=== PATIENT | female | born 1970 | race Caucasian/White ===

== ENCOUNTER 2021-03-19 11:26 | Inpatient (IN) | payer OTHER ==
[~2021-03-19] VITALS: Ht 162.6 cm; Wt 59.0 kg
[2021-03-19 12:30] LABS: HEMOGLOBIN 13.1 gm/dl (12.3-15.3); RED BLOOD COUNT 4.3 M/UL (4.00-5.10); WHITE BLOOD COUNT 14.3 K/UL (4.5-11.0)
[2021-03-19 12:59] LABS: BUN/CREATININE RATIO 20 (0-10)
[2021-03-20 04:10] LABS: HEMOGLOBIN 12.5 gm/dl (12.3-15.3); RED BLOOD COUNT 4.17 M/UL (4.00-5.10); WHITE BLOOD COUNT 12.4 K/UL (4.5-11.0)
[2021-03-20 04:40] LABS: BUN/CREATININE RATIO 15 (0-10)
--- NOTE | 2021-03-20 08:17 | NUR ---
NED AND MCKENZIE NOTIFIED OF PT SCREAMING IN PAIN NPO ORDER CONFIRMED FOR POSSIBLE WASHOUT OF FINGER TODAY SEE EMAR FOR ORDERS WCTM
[2021-03-21 00:51] LABS: ACINETOBACTER BAUMANNII Not Detected (Negative); CANDIDA ALBICANS Not Detected (Negative); CANDIDA KRUSEI Not Detected (Negative); CANDIDA TROPICALIS Not Detected (Negative); ENTEROCOCCUS Not Detected (Negative); ESCHERICHIA COLI Not Detected (Negative); HAEMOPHILUS INFLUENZAE Not Detected (Negative); KLEBSIELLA OXYTOCA Not Detected (Negative); KLEBSIELLA PNEUMONIAE Not Detected (Negative); KPC-CARBAPENEM-RESISTANCE GENE Not Detected (Negative); PROTEUS Not Detected (Negative); PSEUDOMONAS AERUGINOSA Not Detected (Negative); SERRATIA MARCESANS Not Detected (Negative); STAPHYLOCOCCUS AUREUS Not Detected (Negative); STREP AGALACTIAE (GROUP B) Not Detected (Negative); STREP PYOGENES (GROUP A) Not Detected (Negative); STREPTOCOCCUS Not Detected (Negative); mecA (METHICILLIN RESIST GENE Not Detected (Negative); vanA/B (VANCOMYCIN RESIST GENE Not Detected (Negative)
[2021-03-21 02:31] LABS: STAPHYLOCOCCUS DETECTED (Negative)
[2021-03-21 05:07] LABS: HEMOGLOBIN 13.3 gm/dl (12.3-15.3); RED BLOOD COUNT 4.4 M/UL (4.00-5.10)
[2021-03-21 05:46] LABS: BUN/CREATININE RATIO 20 (0-10)
--- NOTE | 2021-03-21 16:29 | NUR ---
PT STATED SHE WANTED TO LEAVE AMA. NURSE INSTRUCTED PT OF DANGERS OF LEAVING AMA. PHYSICIAN WAS NOTIFIED AND EDUCATED PT FURTHER ON THE DANGERS OF LEAVING AMA. PT STATED SHE UNDERSTANDS THE DANGERS OF LEAVING AMA AND HAS CHOSEN TO STILL LEAVE. PT SIGNED AMA PAPERS.
== END 2021-03-21 16:25 | disposition left against medical advice (07) | DRG 603 ==
LOC: ER1 11:26 → M/S 15:12 → CDU 15:12 → M/S 18:01
PROVIDERS: Orthopaedic Surgery; Physician Assistant; ADMIT Internal Medicine
PROC: 0J9J0ZZ Drainage of Right Hand Subcutaneous Tissue and Fascia, Open Approach (ICD-10-PCS; principal; 2021-03-20 16:47)
DX: L03.113 Cellulitis of right upper limb (principal); L02.511 Cutaneous abscess of right hand; E87.1 Hypo-osmolality and hyponatremia; Z20.822 Contact with and (suspected) exposure to COVID-19; F19.10 Other psychoactive substance abuse, uncomplicated; F11.10 Opioid abuse, uncomplicated; E87.6 Hypokalemia; F15.10 Other stimulant abuse, uncomplicated; Z56.0 Unemployment, unspecified
CPT/HCPCS: 36415; 73130; 80048; 80053; 80202; 80307; 81001; 83605; 83735; 84703; 85025; 85652; 86140; 87040; 87070; 87077; 87086; 87150; 87186; 87205; 96374; 96375; 96376; 99284; J1100; J2001; J2060; J2270; J2405; J2543; J2704; J3010; J3370; J7030; J7050; J7120; U0002

== ENCOUNTER 2021-10-25 21:44 | Inpatient (IN) | payer OTHER ==
[~2021-10-25] VITALS: Ht 160 cm; Wt 63.5 kg
[2021-10-25 22:44] LABS: HEMOGLOBIN 12.4 gm/dl (12.3-15.3); RED BLOOD COUNT 4.34 M/UL (4.00-5.10); WHITE BLOOD COUNT 14.7 K/UL (4.5-11.0)
[2021-10-25 23:04] LABS: BUN/CREATININE RATIO 30 (0-10)
[2021-10-26 14:34] LABS: MONONUCLEAR CELLS 86.6 (75-100); POLYMORPHONUCLEAR % 13.4 (0-25); RBC (AUTOMATED) 8600 (0-100000); WBC (AUTOMATED) 900 (0-500)
[2021-10-26 14:44] LABS: LDH, BODY FLUID 78 U/L
[2021-10-26 14:45] LABS: AMYLASE, BODY FLUID 21 U/L
[2021-10-27 03:00] LABS: HEMOGLOBIN 12.8 gm/dl (12.3-15.3); RED BLOOD COUNT 4.43 M/UL (4.00-5.10); WHITE BLOOD COUNT 9.7 K/UL (4.5-11.0)
[2021-10-27 03:21] LABS: BUN/CREATININE RATIO 30 (0-10)
[2021-10-27 09:10] LABS: HBSAG SCREEN Negative (Negative); HCV AB <0.1 (0.0-0.9); HEP A AB, IGM Negative (Negative); HEP B CORE AB, IGM Negative (Negative)
[2021-10-28 04:07] LABS: HEMOGLOBIN 13.5 gm/dl (12.3-15.3); RED BLOOD COUNT 4.72 M/UL (4.00-5.10)
[2021-10-28 04:27] LABS: BUN/CREATININE RATIO 24 (0-10)
[2021-10-29 03:09] LABS: BUN/CREATININE RATIO 33 (0-10)
[2021-10-29 03:20] LABS: HEMOGLOBIN 12.1 gm/dl (12.3-15.3); WHITE BLOOD COUNT 8.4 K/UL (4.5-11.0)
[2021-10-29 03:22] LABS: RED BLOOD COUNT 4.23 M/UL (4.00-5.10)
--- NOTE | 2021-10-29 17:16 | NUR ---
PATIENT IS NONCOMPLIANT WITH STRICT I/O PATIENT WILL NOT USE HAT IN COMMODE WHEN VOIDING. PT EDUCATED ABOUT IMPORTANCE OF STRICT I/O, PT VERBALIZED UNDERSTANDING. PATIENT ALSO AMBULATES OFF UNIT SEVERAL TIMES PER DAY, AND USES RESTROOM DOWN STAIRS AT TIMES.
[2021-10-30 05:10] LABS: BUN/CREATININE RATIO 36 (0-10)
[2021-10-30 07:11] LABS: HIV AB/P24 AG SCREEN Non Reactive (Non Reactive)
[2021-10-31 03:03] LABS: HEMOGLOBIN 13.1 gm/dl (12.3-15.3); RED BLOOD COUNT 4.57 M/UL (4.00-5.10); WHITE BLOOD COUNT 8.8 K/UL (4.5-11.0)
[2021-10-31 03:28] LABS: BUN/CREATININE RATIO 34 (0-10)
[2021-11-02 03:12] LABS: HEMOGLOBIN 11.8 gm/dl (12.3-15.3); RED BLOOD COUNT 4.17 M/UL (4.00-5.10); WHITE BLOOD COUNT 8.5 K/UL (4.5-11.0)
[2021-11-02 03:33] LABS: BUN/CREATININE RATIO 31 (0-10)
[2021-11-03 07:52] LABS: BUN/CREATININE RATIO 58 (0-10)
[2021-11-04 06:45] LABS: HEMOGLOBIN 12.6 gm/dl (12.3-15.3); RED BLOOD COUNT 4.5 M/UL (4.00-5.10); WHITE BLOOD COUNT 9.5 K/UL (4.5-11.0)
[2021-11-04 07:03] LABS: BUN/CREATININE RATIO 52 (0-10)
[2021-11-04] MEDS ORDERED: COZAAR 25MG TAB25 MG PO (12:00)
[2021-11-04] MEDS ORDERED: HYDROCODON-ACE1 EAC2 PO (12:00)
[2021-11-04] MEDS ORDERED: ALPRAZOLAM0.5 MG PO (12:00)
[2021-11-04] MEDS ORDERED: FUROSEMIDE40 MG PO (12:00)
[2021-11-04] MEDS ORDERED: ALDACTONE 25MG25 MG PO (12:00)
[2021-11-04] MEDS ORDERED: DIGOXIN125 MCG PO (12:00)
[2021-11-04] MEDS ORDERED: METOPROLOL SUC100 MG PO (12:00)
[2021-11-04] MEDS ORDERED: VANCOMYCIN1.25 GM/12 IV (12:00)
[2021-11-04] MEDS ORDERED: CEFEPIME HCL1 GM INJ (12:00)
== END 2021-11-04 12:37 | disposition left against medical advice (07) | DRG 286 ==
LOC: ER1 21:44 → CDU 10-26 02:37 → M/S 10-26 02:37
PROVIDERS: Internal Medicine; Internal Medicine Cardiovascular Disease; Internal Medicine Infectious Disease; Physician Assistant; ADMIT Internal Medicine
PROC: 0W993ZZ Drainage of Right Pleural Cavity, Percutaneous Approach (ICD-10-PCS; principal; 2021-10-26)
PROC: B24BZZZ Ultrasonography of Heart with Aorta (ICD-10-PCS; 2021-10-26)
PROC: B24BZZ4 Ultrasonography of Heart with Aorta, Transesophageal (ICD-10-PCS; 2021-10-30)
PROC: 4A023N7 Measurement of Cardiac Sampling and Pressure, Left Heart, Percutaneous Approach (ICD-10-PCS; 2021-11-01)
PROC: B2111ZZ Fluoroscopy of Multiple Coronary Arteries using Low Osmolar Contrast (ICD-10-PCS; 2021-11-01)
DX: I33.0 Acute and subacute infective endocarditis (principal); I50.23 Acute on chronic systolic (congestive) heart failure; J18.9 Pneumonia, unspecified organism; I42.8 Other cardiomyopathies; I51.7 Cardiomegaly; F17.200 Nicotine dependence, unspecified, uncomplicated; Z20.822 Contact with and (suspected) exposure to COVID-19; T43.625A Adverse effect of amphetamines, initial encounter; I27.20 Pulmonary hypertension, unspecified; F15.10 Other stimulant abuse, uncomplicated; K80.20 Calculus of gallbladder without cholecystitis without obstruction; E88.09 Other disorders of plasma-protein metabolism, not elsewhere classified; M65.18 Other infective (teno)synovitis, other site; R74.01 Elevation of levels of liver transaminase levels; F17.210 Nicotine dependence, cigarettes, uncomplicated; F41.9 Anxiety disorder, unspecified; Z98.890 Other specified postprocedural states; Z82.49 Family history of ischemic heart disease and other diseases of the circulatory system
CPT/HCPCS: ECHO; 36415; 71045; 71046; 73701; 80048; 80053; 80074; 80076; 80202; 80307; 81001; 82150; 82550; 82553; 82945; 83605; 83615; 83690; 83880; 83986; 84157; 84484; 84703; 85025; 85379; 85610; 85652; 86140; 87040; 87070; 87081; 87205; 87389; 89051; 93005; 93306; 93312; 93320; 94640; 94664; 94760; 96365; 96366; 96375; 99152; 99285; C1769; C1887; C1894; J0456; J0692; J0696; J1160; J1644; J1650; J1885; J1940; J2250; J2310; J3010; J3370; J7040; J7070; Q0177; Q9967

== ENCOUNTER 2021-12-17 23:19 | Inpatient (IN) | payer OTHER ==
[~2021-12-17] VITALS: Ht 162.6 cm; Wt 61.2 kg
[~2021-12-17 23:19] MED LIST: ALDACTONE 25MG25 MG PO; ALPRAZOLAM0.5 MG PO; CEFEPIME HCL1 GM INJ; COZAAR 25MG TAB25 MG PO; DIGOXIN125 MCG PO; FUROSEMIDE40 MG PO; HYDROCODON-ACE1 EAC2 PO; METOPROLOL SUC100 MG PO; VANCOMYCIN1.25 GM/12 IV
[2021-12-17 23:45] LABS: HEMOGLOBIN 12.8 gm/dl (12.3-15.3); RED BLOOD COUNT 4.53 M/UL (4.00-5.10); WHITE BLOOD COUNT 11.8 K/UL (4.5-11.0)
[2021-12-18 00:22] LABS: BUN/CREATININE RATIO 42 (0-10)
[2021-12-18] MEDS ORDERED: FUROSEMIDE40 MG PO (09:44)
[2021-12-18] MEDS ORDERED: LOSARTAN POTASS25 MG PO (09:44)
[2021-12-18] MEDS ORDERED: DIGOXIN125 MCG PO (09:44)
[2021-12-18] MEDS ORDERED: METOPROLOL SUC100 MG PO (09:45)
[2021-12-18] MEDS ORDERED: SPIRONOLACTONE25 MG PO (09:46)
[2021-12-19 06:22] LABS: HEMOGLOBIN 13.7 gm/dl (12.3-15.3); RED BLOOD COUNT 4.91 M/UL (4.00-5.10)
[2021-12-19 06:35] LABS: WHITE BLOOD COUNT 8.3 K/UL (4.5-11.0)
[2021-12-19 06:52] LABS: BUN/CREATININE RATIO 44 (0-10)
[2021-12-20 06:15] LABS: HEMOGLOBIN 14.5 gm/dl (12.3-15.3); RED BLOOD COUNT 5.13 M/UL (4.00-5.10); WHITE BLOOD COUNT 7.5 K/UL (4.5-11.0)
[2021-12-20 06:56] LABS: BUN/CREATININE RATIO 48 (0-10)
[2021-12-21 05:54] LABS: BUN/CREATININE RATIO 37 (0-10)
[2021-12-22 06:35] LABS: BUN/CREATININE RATIO 32 (0-10)
[2021-12-23 04:51] LABS: BUN/CREATININE RATIO 33 (0-10)
[2021-12-24 11:31] LABS: HEMOGLOBIN 14.9 gm/dl (12.3-15.3); RED BLOOD COUNT 5.26 M/UL (4.00-5.10); WHITE BLOOD COUNT 7.6 K/UL (4.5-11.0)
[2021-12-24 12:02] LABS: BUN/CREATININE RATIO 46 (0-10)
[2021-12-25 06:03] LABS: HEMOGLOBIN 14.8 gm/dl (12.3-15.3); RED BLOOD COUNT 5.3 M/UL (4.00-5.10); WHITE BLOOD COUNT 6.3 K/UL (4.5-11.0)
[2021-12-25 06:25] LABS: BUN/CREATININE RATIO 42 (0-10)
[2021-12-26] MEDS ORDERED: SERTRALINE HCL50 MG PO (11:57)
[2021-12-26] MEDS ORDERED: HYDROCODON-ACE1 EAC3 PO (11:58)
--- NOTE | 2021-12-26 17:28 | NUR ---
ATTEMPTED TO CALL REPORT TO CONTINUED CARE, NURSE UNAVAILABLE LEFT CALL BACK NUMBER.
== END 2021-12-26 18:03 | DRG 291 ==
LOC: ER1 23:19 → MED SURG 4 12-18 06:09 → CDU 12-18 06:09 → MED SURG 4 12-18 13:38
PROVIDERS: Family Medicine; Internal Medicine; ADMIT Internal Medicine
PROC: B24BZZZ Ultrasonography of Heart with Aorta (ICD-10-PCS; principal; 2021-12-18)
DX: I11.0 Hypertensive heart disease with heart failure (principal); I50.23 Acute on chronic systolic (congestive) heart failure; J96.01 Acute respiratory failure with hypoxia; E87.2 Acidosis; M86.641 Other chronic osteomyelitis, right hand; E44.0 Moderate protein-calorie malnutrition; F19.10 Other psychoactive substance abuse, uncomplicated; I42.8 Other cardiomyopathies; I07.9 Rheumatic tricuspid valve disease, unspecified; F41.9 Anxiety disorder, unspecified; E04.1 Nontoxic single thyroid nodule; J43.9 Emphysema, unspecified; T43.625A Adverse effect of amphetamines, initial encounter; Z20.822 Contact with and (suspected) exposure to COVID-19; Z98.890 Other specified postprocedural states; Z82.49 Family history of ischemic heart disease and other diseases of the circulatory system; Z87.891 Personal history of nicotine dependence; Z91.14 Patient's other noncompliance with medication regimen; Z68.23 Body mass index [BMI] 23.0-23.9, adult
CPT/HCPCS: ECHO; 36415; 71045; 71046; 73080; 80048; 80053; 80202; 80307; 81001; 82550; 82553; 83605; 83735; 83880; 84484; 85025; 85027; 85379; 85652; 86140; 87040; 93005; 93306; 96374; 96375; 96376; 99285; J0692; J1650; J1940; J3370; J7070; Q9967; U0002